=== PATIENT | male | born 1985 | race Caucasian/White ===

== ENCOUNTER 2016-05-20 11:56 | Outpatient (CLI) | payer BC, OTHER | END 2016-05-20 11:57 | disposition home or self-care (01) | DX: Z00.00 Encounter for general adult medical examination without abnormal findings (principal); R03.0 Elevated blood-pressure reading, without diagnosis of hypertension ==

== ENCOUNTER 2016-05-21 13:38 | Outpatient (CLI) | payer OTHER | END 2016-05-21 13:39 | disposition home or self-care (01) | DX: G47.30 Sleep apnea, unspecified (principal); G47.8 Other sleep disorders; G47.10 Hypersomnia, unspecified; R06.83 Snoring ==

== ENCOUNTER 2016-09-23 10:44 | Outpatient (CLI) | payer OTHER | END 2016-09-23 10:45 | disposition home or self-care (01) | DX: G47.33 Obstructive sleep apnea (adult) (pediatric) (principal) ==

== ENCOUNTER 2016-11-19 08:59 | Outpatient (CLI) | payer OTHER | END 2016-11-19 09:00 | disposition home or self-care (01) | LOC: SC 08:59 | PROVIDERS: ATTEND Specialist | DX: G47.33 Obstructive sleep apnea (adult) (pediatric) (principal) | CPT/HCPCS: 99212; 99213 ==

== ENCOUNTER 2017-08-29 15:51 | Outpatient (CLI) | payer OTHER ==
--- NOTE | 2017-08-30 20:24 | XRAY Report ---
EXAM: RIGHT SHOULDER RADIOGRAPHY EXAM DATE: 08/29/2017 04:05 PM. CLINICAL HISTORY: SHOULDER PAIN, RIGHT. COMPARISON: None. TECHNIQUE: 3 views. FINDINGS: Bones: Normal. No fracture or bone lesion. Joints: The glenohumeral and acromioclavicular joints are preserved. Soft tissues: The visualized hemithorax is unremarkable. No soft tissue swelling. IMPRESSION: Negative shoulder radiography. [facility] Referring Provider Line: [phone] SITE ID: [id number]
== END 2017-08-29 15:52 | disposition home or self-care (01) ==
LOC: DI 15:51
PROVIDERS: ATTEND Family Medicine
DX: M25.511 Pain in right shoulder (principal)

== ENCOUNTER 2019-05-26 10:33 | Emergency (ER) | payer OTHER, BC ==
[2019-05-26 10:55] VITALS: BP 202/98
--- NOTE | 2019-05-26 11:57 | XRAY Report ---
Reason: neck/shoulder pain Procedure Date: 05/26/2019 Accession Number: [id number] / [id number] Procedure: XR - Cervical Spine 2 View CPT Code: Final Report FULL RESULT: EXAM: CERVICAL SPINE RADIOGRAPHY EXAM DATE: 05/26/2019 11:42 AM. CLINICAL HISTORY: Neck/shoulder pain. COMPARISONS: None. TECHNIQUE: 3 views. FINDINGS: Alignment: Straightened cervical lordosis.. No spondylolisthesis or scoliosis. Bones: The cervical vertebral bodies and posterior elements are well visualized from the skull base through C7. The C7-T1 disk is not imaged. No fractures or bone lesions. Disks: Disk heights are maintained. Facets: No degenerative disease. Soft Tissues: No prevertebral soft tissue swelling. IMPRESSION: No significant findings 3 view cervical spine radiography through C7.. [facility]
--- NOTE | 2019-05-26 11:59 | XRAY Report ---
Reason: neck/shoulder pain Procedure Date: 05/26/2019 Accession Number: [id number] / [id number] Procedure: XR - Shoulder 3 View LT CPT Code: Final Report FULL RESULT: EXAM: LEFT SHOULDER RADIOGRAPHY EXAM DATE: 05/26/2019 11:42 AM. CLINICAL HISTORY: Neck/shoulder pain. COMPARISON: SHOULDER 3 VIEW RT 08/29/2017 3:55 PM. TECHNIQUE: 4 views. FINDINGS: Bones: Normal. No fracture or bone lesion. Joints: The glenohumeral and acromioclavicular joints are anatomically aligned. Soft tissues: The included hemithorax is unremarkable. No soft tissue calcification. IMPRESSION: Normal left shoulder radiography. [facility]
--- NOTE | 2019-05-26 12:03 | ED Physician Documentation ---
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 Now feeling better. No head inj. Ambulating ok.) Review of Systems Constitutional: denies: Fever, Chills Cardiac: denies: Chest pain / pressure, Palpitations Respiratory: denies: Dyspnea, Cough PD PAST MEDICAL HISTORY - Present Medications Home Medications: Ambulatory Orders Medication Instructions Recorded Confirmed Cyclobenzaprine [Flexeril] 10 mg PO TID PRN #14 tablet 05/26/19 PD ED PE NORMAL - Vitals Vital signs reviewed: Yes - General General: Alert and oriented X 3, No acute distress, Well developed/nourished - HEENT HEENT: Atraumatic, PERRL, EOMI - Neck Neck: Other (Cervical spine is nontender, he has mild pain with leftward rotation but not rightward with rotation.) - Extremities Extremities: Other (Left shoulder is nontender without deformity. He can abduct to about 120 degrees but then it starts to hurt. Negative supraspinatus testing, no pain with forced internal or external rotation.) - Neuro Neuro: Alert and oriented X 3, Normal speech Results - Vitals Vitals: Vital Signs - 24 hr 05/26/19 10:50 Temperature 36.4 C L Heart Rate 90 Respiratory 16 Rate Blood Pressure 202/98 H O2 Saturation 97 Oxygen O2 Source Room air - Rads (name of study) XR Cspine and L shoulder Radiology: EMP read contemporaneously (NAD) PD MEDICAL DECISION MAKING - ED course ED course: 33-year-old gentleman with a fall, injuring his left shoulder and neck. Examination and x-rays are without significant abnormality. He requested some muscle relaxers but also wanted to go back to work. Departure - Departure Disposition: Home, Self Care Clinical Impression: Left shoulder strain Qualifiers: Encounter type: initial encounter Qualified Code(s): S46.912A - Strain of unspecified muscle, fascia and tendon at shoulder and upper arm level, left arm, initial encounter Neck strain Qualifiers: Encounter type: initial encounter Qualified Code(s): S16.1XXA - Strain of muscle, fascia and tendon at neck level, initial encounter Condition: Good Record reviewed to determine appropriate education?: Yes Instructions: ED Sprain Strain Neck, ED Sprain Shoulder Prescriptions: Cyclobenzaprine [Flexeril] 10 mg PO TID PRN #14 tablet PRN Reason: Spasms Comments: Check with your doctor in a week if not better, return for new or worsening symptoms. Forms: Activity restrictions
== END 2019-05-26 12:08 | disposition home or self-care (01) ==
LOC: ED 10:33
DX: S46.912A Strain of unspecified muscle, fascia and tendon at shoulder and upper arm level, left arm, initial encounter (principal); S16.1XXA Strain of muscle, fascia and tendon at neck level, initial encounter; V86.11XA Passenger of ambulance or fire engine injured in traffic accident, initial encounter; Y99.0 Civilian activity done for income or pay
CPT/HCPCS: 1040M; 72040; 73030; 99283; 99284

== ENCOUNTER 2019-06-03 08:00 | Outpatient (CLI) | payer OTHER ==
[2019-06-03 18:37] LABS: HB2 TOTAL 13.8 g/dL; HEMOGLOBIN A1C 0.53 g/dL; HEMOGLOBIN A1C % 5.7 % (4.6-6.2)
[2019-06-03 18:49] LABS: BASOPHILS % (AUTO) 0.4 %; EOSINOPHILS # (AUTO) 0.1 10^3/uL (0.0-0.7); EOSINOPHILS % (AUTO) 1.4 %; HGB - HEMOGLOBIN 13.7 g/dL (14.0-18.0); LYMPHOCYTES # (AUTO) 1.8 10^3/uL (1.5-3.5); LYMPHOCYTES % (AUTO) 24.3 %; MEAN CORPUSCULAR HEMOGLOBIN 27.7 pg (27.0-31.0); MEAN CORPUSCULAR HGB CONC 31.1 g/dL (32.0-36.0); MEAN CORPUSCULAR VOLUME 89.3 fL (80.0-94.0); MEAN PLATELET VOLUME 11.3 fL (7.4-11.4); MONOCYTES # (AUTO) 0.4 10^3/uL (0.0-1.0); MONOCYTES % (AUTO) 5.7 %; NEUTROPHILS % (AUTO) 67.8 %; PLT - PLATELET COUNT 222 10^3/uL (130-450); RED BLOOD COUNT 4.94 10^6/uL (4.70-6.10); RED CELL DISTRIBUTION WIDTH 13.9 % (12.0-15.0); WHITE BLOOD COUNT 7.4 x10^3/uL (4.8-10.8)
[2019-06-03 18:50] LABS: ALBUMIN 3.8 g/dL (3.2-5.5); ALBUMIN/GLOBULIN RATIO 1.1 (1.0-2.2); ALKALINE PHOSPHATASE 96 IU/L (42-121); ALT ALANINE AMINOTRANSFERASE 60 IU/L (10-60); AST ASPARTATE AMINOTRANSFERASE 45 IU/L (10-42); BILIRUBIN,TOTAL 0.5 mg/dL (0.2-1.0); BUN - BLOOD UREA NITROGEN 19 mg/dL (6-20); CALCIUM 9.1 mg/dL (8.5-10.3); CARBON DIOXIDE - CO2 24 mmol/L (21-32); CHLORIDE 108 mmol/L (101-111); CHOL/HDL RATIO 3.8 (<5.0); CHOLESTEROL 140 mg/dL; CREATININE 0.7 mg/dL (0.6-1.2); GFR - MDRD 131 (>89); GLUCOSE 84 mg/dL (70-100); HDL CHOLESTEROL 37 mg/dL; LDL CHOLESTEROL,CALCULATED 78 mg/dL; LDL/HDL RATIO 2.1 (<3.6); SODIUM 141 mmol/L (135-145); TOTAL PROTEIN 7.3 g/dL (6.7-8.2); VLDL CHOLESTEROL 25 mg/dL
== END 2019-06-03 23:59 | disposition home or self-care (01) ==
LOC: LAB.WCP 08:00
PROVIDERS: ATTEND Family Medicine
DX: I10 Essential (primary) hypertension (principal); E66.01 Morbid (severe) obesity due to excess calories
CPT/HCPCS: 36415; 80053; 80061; 83036; 83721; 84443; 85025

== ENCOUNTER 2020-03-28 15:02 | Outpatient (CLI) | payer BC ==
--- NOTE | 2020-03-28 15:57 | SLEEP CARE CONSULTATION ---
Information from patient questionnaire entered by Chino Russell. I have reviewed and concur with the information entered by Chino Russell. This document represents the service I personally performed and the decisions made by me, Madhuri Queen ARNP. History of Present Illness Service Date and Time: 03/28/2020 1502 Reason for Visit: New patient, Re-establish care Chief Complaint: reports: Other (To transfer DME suppliers) Date of Onset: 4 years Usual bedtime: 11 PM Time it takes to fall asleep: Minutes Snores at night: Yes Observed to quit breathing while asleep: Yes Sleeps alone due to snoring: No Number of times waking at night: 3 Reasons for waking at night: denies: Choking, Snoring, Gasping for air Toss, Turn, or Twitch while sleeping: No Recalls having dreams: Yes Usually gets out of bed at: 10 AM Feels refreshed in the morning: Yes Morning headache: No Sleepy or fatigued during the day: Yes Ever fallen asleep while driving: No Takes day naps: Yes Dreams during day naps: No Prior sleep studies: Yes Year and Where: 2016 [facility] Additional HPI information: CHIVO SHAFER was diagnosed to have mild, AHI 5.2, obstructive sleep apnea- hypopnea syndrome and comes in today for CPAP therapy to reestablish care with clinic. - Parasomnia Symptoms Ever been unable to move upon waking from sleep: No Ever felt weak in the knees when startled or emotional: No Bothered by creepy, crawly, restless sensations in legs: No Problems with memory or concentration: No CPAP Compliance Data Compliance data discussion: [facility] was DME but they are no longer dealing in CPAP supplies. He needs to change to new DME for supplies. Full face mask, Resmed; he has been using same mask for years. He washes it once a week. He has a back up mask if needed. Subjective Missed days of use due to: reports: other (working, avg 12 days of month) Patient concerns: reports: mask leak noise (needs to change out headgear since it is worn out from use). denies: aerophagia, mask discomfort, air blowing in eyes, condensation in mask/hose, nasal congestion, dry mouth, nose, throat, epistaxis, other Observed to snore while using device: Yes (occasionally, not for long) Current pressure setting perceived as: comfortable On therapy, patient: reports: sleeping better, awakening more refreshed, being more awake and alert during the day, more rested overall. denies: drowsiness while driving Initial [place] Sleepiness Scale score: 7 (in 2017) Current [place] Sleepiness Scale score: 9 Past Medical History Past Medical History: reports: Hypertension, GERD. 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 Patient is Single and lives in [place]. Have you smoked in the past 12 months: No Cigarettes per day (20/pack): 10 Years of smokin Quit date: 4 years Smoking Pack Years: 2.0 Alcohol use: Yes Alcohol amount and frequency: 3 beers once a week Caffeine use: Yes Caffeine amount and frequency: lots; 2 liters diet pepsi daily Family History Family history of sleep disordered breathing: Yes (mom and dad) Family Hx Sleep Apnea: Mother: Snoring, Father: Snoring Allergies and Home Medications Drug allergies reviewed: Yes (erythromycin, mycins) Home medication list reviewed: Yes Allergy and home medication list: Lisinopril 20 mg daily Review of Systems Weight gain over past 5 years: yes Cardiovascular: reports: high blood pressure. denies: palpitations, chest pain, irregular heart rate or pulse Respiratory: reports: chronic cough. denies: shortness of breath Gastrointestinal: reports: heartburn. denies: difficulty swallowing Neurological: denies: headaches, seizure, head trauma, speech dysfunction, gait or balance problems Psychiatric: denies: Attention Deficit Hyperactivity, anxiety, depression, mood disorder, claustrophobia Ear/Nose/Throat: denies: nasal congestion, sinus problems, nose bleeds, dry mouth/throat, injury to nose, tonsillectomy, wisdom teeth removed Endocrine: denies: thyroid disease Musculoskeletal: denies: joint pain, muscle pain or cramping Immunologic: denies: allergies to food or environment Physical Exam Blood Pressure: 146/77 Cuff size: wrist Heart Rate: 83 O2 Saturation: 98 Height: 6 ft 1 in Weight: 450 lb Body Mass Index: 59.3 BMI Classification: Morbidly Obese Neck circumference: 20 (inches) Nostrils: patent to airflow Turbinates: normal Septum: midline Mouth and throat: narrow oropharynx Uvula visualization: 50% Mallampati Class II Tongue: enlarged in size with teeth cabrera on lateral edges Tonsils: 1+ Chin and jaw: normal size and position Neck: normal w/o lymphadenopathy or thyromegaly Heart: regular rate and rhythm Lungs: clear bilaterally Impression and Plan 1. Obstructive Sleep Apnea-Hypopnea Syndrome, mild, with unknown treatment compliance and unknown apnea control. On CPAP therapy, the patient has better sleep quality and is more rested overall. He needs a new DME since his last one no longer is dispensing supplies. Patient was informed that another DME can be used. I will have my humanities coordinator inform of DME options. A DWO prescrip tion will then be made but will not be faxed until his compliance information has been returned to office and he is found to be compliant. Patient advised to contact this office if further supply problems. 2. Morbid obesity, unspecified. Currently patients BMI is 59.3. Obesity increases the risk of apnea, CPAP pressure requirements and overall health risks especially cardiovascular and diabetes. Thus patient is advised to lose weight. Weight loss can be done with reducing portion size, reducing refined foods and balancing content with vegetables, fruit and whole grain foods. Patient's apnea severity and rationale for treatment to reduce apnea, improve sleep quality and reduce cardiovascular and cerebrovascular events was reviewed. I also reviewed the benefit of consistent device use of CPAP for hypertension. * Patient to bring in compliant information on his memory chip * Transfer of DME once compliance information is determined * Notify me if snoring with mask or feeling that the pressure is too much or too little * Attempt to lose weight * Call this office if any problems using CPAP * Return for follow up in annual (unless he is not compliant), or sooner if concerns arise Counseling Topics: Spare mask, Weight loss health impact Visit Type: In Office Time Spent with Patient (minutes): 39 Provider Statement: I spent 100% of the Face to Face Visit with the patient with greater than 50% spent counseling the patient and coordination of care.
[2020-03-28 16:00] VITALS: BP 146/77
== END 2020-03-28 15:03 | disposition home or self-care (01) ==
LOC: SC 15:02
PROVIDERS: ATTEND Nurse Practitioner Family
DX: G47.33 Obstructive sleep apnea (adult) (pediatric) (principal); E66.01 Morbid (severe) obesity due to excess calories; Z68.43 Body mass index [BMI] 50.0-59.9, adult
CPT/HCPCS: 99203; 99212

== ENCOUNTER 2020-10-28 11:00 | Outpatient (CLI) | payer BC ==
--- NOTE | 2020-10-28 12:32 | XRAY Report ---
PROCEDURE: Foot 2 View LT INDICATIONS: PAIN IN LEFT FOOT TECHNIQUE: 2 views of the foot were acquired. COMPARISON: None FINDINGS: Bones: No fractures or dislocations. No suspicious bony lesions. Soft tissues: No tibiotalar joint effusion. Achilles tendon appears normal. IMPRESSION: No evidence acute bony abnormality of the left foot. Reviewed by: Tyson Bradford MD on 10/28/2020 11:30 AM [facility] Approved by: Tyson Bradford MD on 10/28/2020 11:30 AM [facility] Station ID: [id number]
== END 2020-10-28 11:01 | disposition home or self-care (01) ==
LOC: DI.N 11:00
PROVIDERS: ATTEND Nurse Practitioner
DX: M79.672 Pain in left foot (principal)

== ENCOUNTER 2021-04-14 21:53 | Emergency (ER) | payer BC ==
--- NOTE | 2021-04-14 22:09 | ED Physician Documentation ---
History of Present Illness - Stated complaint Stated Complaint: DIZZY - History obtained from History obtained from: Patient - Additonal information Additional information: 35-year-old man with recent medical history of 175 pound weight loss status post gastric sleeve surgery presents with multiple episodes of lightheadedness today. Patient states that he urinated this morning but has not urinated since and has had only 1 cup of coffee, one mocha, and one iced tea today otherwise has not had any water. Patient worked hard outside today and became lightheaded and had a hot flash requiring him to take a break. He had a recurrent episode in the evening and so went to the [facility] to get checked out. He had a normal blood pressure but then still felt ill and so was brought to the emergency department. Denies fevers chills nausea diaphoresis chest pain shortness of breath or other symptoms. Patient felt normal yesterday. No sick contacts. Review of Systems Ten Systems: 10 systems reviewed and negative Constitutional: denies: Fever, Chills Cardiac: denies: Chest pain / pressure Respiratory: denies: Dyspnea, Cough GI: denies: Abdominal Pain, Nausea, Vomiting, Diarrhea : denies: Dysuria Neurologic: reports: Generalized weakness, Other (lightheadedness). denies: Focal weakness, Numbness PD PAST MEDICAL HISTORY - Present Medications Home Medications: Ambulatory Orders Medication Instructions Recorded Confirmed Cyclobenzaprine [Flexeril] 10 mg PO TID PRN #14 tablet 05/26/19 - Allergies Allergies/Adverse Reactions: Allergies Allergy/AdvReac Type Severity Reaction Status Date / Time erythromycin base Allergy Unknown Verified 04/14/21 22:05 [From Erythrocin] - Social History Does the pt smoke?: No Smoking Status: Never smoker - POLST Patient has POLST: No PD ED PE NORMAL - Vitals Vital signs reviewed: Yes - General General: Alert and oriented X 3, No acute distress, Well developed/nourished - HEENT HEENT: Atraumatic, PERRL, EOMI - Neck Neck: Supple, no meningeal sign - Cardiac Cardiac: RRR, No murmur, No gallop, No rub, Strong equal pulses - Respiratory Respiratory: No respiratory distress, Clear bilaterally - Abdomen Abdomen: Non tender, Non distended - Derm Derm: Normal color, Warm and dry - Extremities Extremities: No deformity - Neuro Neuro: Alert and oriented X 3 - Psych Psych: Normal mood, Normal affect Results - Vitals Vitals: Vital Signs - 24 hr 04/14/21 04/14/21 04/14/21 22:05 22:06 22:09 Temperature 36.5 C 36.8 C Heart Rate 60 60 Heart Rate [ 52 L Sitting] Heart Rate [ 56 L Standing] Heart Rate [ 55 L Supine] Respiratory 18 18 Rate Blood Pressure 157/75 H 157/75 H Blood Pressure 171/93 H [Sitting] Blood Pressure 177/109 H [Standing] Blood Pressure 164/89 H [Supine] O2 Saturation 100 100 Oxygen O2 Source Room air - EKG (time done) 2159 Rate: Rate (enter#) (54) Rhythm: NSR [place]: Normal Intervals: Normal [place] QRS: Normal Ischemia: ST elevation c/w repol - Labs Labs: Laboratory Tests 04/14/21 04/14/21 04/14/21 22:08 22:51 22:51 WBC 8.5 RBC 4.60 L Hgb 13.7 L Hct 40.8 L MCV 88.7 MCH 29.8 MCHC 33.6 RDW 13.6 Plt Count 181 MPV 12.0 H Neut # (Auto) 6.0 Lymph # (Auto) 1.9 Stevens # (Auto) 0.4 Eos # (Auto) 0.2 Baso # (Auto) 0.0 Absolute Nucleated RBC 0.00 Nucleated RBC % 0.0 Sodium 137 Potassium 3.9 Chloride 100 L Carbon Dioxide 26 Anion Gap 11.0 BUN 17 Creatinine 0.7 Estimated GFR (MDRD) 129 Glucose 110 H POC Whole Bld Glucose 93 Calcium 9.1 Total Bilirubin 0.7 AST 37 ALT 27 Alkaline Phosphatase 106 Total Protein 7.2 Albumin 4.0 Globulin 3.2 Albumin/Globulin Ratio 1.3 Lipase 24 PD MEDICAL DECISION MAKING - ED course ED course: 35yM with psh gastric sleeve p/w lightheadedness today, improving with ivf in ED. Cardiac monitoring uncovered no arrhythmias. patient HR did did down into 50s and high 40s briefly during his stay with NSR on the monitor. patient asymptomatic. advised oral hydration 8 glasses of water daily. Strict return precautions given. plan to f/u with pmd. Departure - Departure Disposition: 01 Home, Self Care Clinical Impression: Lightheadedness, Weakness Condition: Stable Instructions: ED Dizziness UKO Comments: You were seen in the emergency department for dizziness and weakness. Your ekg and labwork did not show any emergent findings. You can view your labwork on the [facility] website through your patient health portal. It is likely that you became overexerted today. You should make sure that you drink lots of water tomorrow and get some rest. Return to the emergency department if you have any new or worsening symptoms or other concerns.
[2021-04-14] MEDS ORDERED: SODIUM CHLORIDE 0.9% 1,000 ML IV STA (22:23)
[2021-04-14 23:00] LABS: BASOPHILS % (AUTO) 0.4 %; EOSINOPHILS # (AUTO) 0.2 10^3/uL (0.0-0.7); HCT - HEMATOCRIT 40.8 % (42.0-52.0); HGB - HEMOGLOBIN 13.7 g/dL (14.0-18.0); LYMPHOCYTES # (AUTO) 1.9 10^3/uL (1.5-3.5); LYMPHOCYTES % (AUTO) 21.9 %; MEAN CORPUSCULAR HEMOGLOBIN 29.8 pg (27.0-31.0); MEAN CORPUSCULAR HGB CONC 33.6 g/dL (32.0-36.0); MEAN CORPUSCULAR VOLUME 88.7 fL (80.0-94.0); MONOCYTES # (AUTO) 0.4 10^3/uL (0.0-1.0); MONOCYTES % (AUTO) 4.9 %; NEUTROPHILS % (AUTO) 70.4 %; PLT - PLATELET COUNT 181 10^3/uL (130-450); RED CELL DISTRIBUTION WIDTH 13.6 % (12.0-15.0); WHITE BLOOD COUNT 8.5 x10^3/uL (4.8-10.8)
[2021-04-14 23:11] LABS: ALBUMIN/GLOBULIN RATIO 1.3 (1.0-2.2); BILIRUBIN,TOTAL 0.7 mg/dL (0.2-1.0); CALCIUM 9.1 mg/dL (8.5-10.3); CREATININE 0.7 mg/dL (0.6-1.2); POTASSIUM 3.9 mmol/L (3.5-5.0); TOTAL PROTEIN 7.2 g/dL (6.7-8.2)
[2021-04-15 00:14] VITALS: BP 134/76
== END 2021-04-15 00:15 | disposition home or self-care (01) ==
LOC: ED 21:53
DX: R42 Dizziness and giddiness (principal); R53.1 Weakness; Z98.84 Bariatric surgery status
CPT/HCPCS: 36415; 80053; 83690; 85025; 93005; 99282; 99283

== ENCOUNTER 2021-11-10 13:44 | Outpatient (CLI) | payer BC | END 2021-11-10 13:45 | disposition critical access hospital (66) | LOC: EMS 13:44 | DX: R42 Dizziness and giddiness (principal); R11.2 Nausea with vomiting, unspecified; R19.7 Diarrhea, unspecified | CPT/HCPCS: A0425; A0427 ==

== ENCOUNTER 2021-11-10 14:14 | Emergency (ER) | payer BC ==
[2021-11-10] MEDS ORDERED: MECLIZINE 12.5 MG TABLET PO STA (14:20)
[2021-11-10] MEDS ORDERED: SODIUM CHLORIDE 0.9% 1,000 ML IV STA (14:20)
[2021-11-10] MEDS ORDERED: PROMETHAZINE INJ 25 MG in SODIUM CHLORIDE 0.9% 50 ML IV STA (14:20)
--- NOTE | 2021-11-10 14:23 | ED Physician Documentation ---
History of Present Illness - Stated complaint Stated Complaint: VERTIGO - History obtained from History obtained from: Patient, EMS - History of Present Illness Timing: Today Pain level max: 0 Pain level now: 0 - Additonal information Additional information: Patient is a 36-year-old male who presents to the emergency department with nausea, vomiting and diarrhea today. Also sudden onset of vertigo. Feels like the room is spinning. He is being worked up currently for a possible acoustic neuroma. Had a recent MRI at [facility] in [place].Has had a 75% hearing loss in the left ear. Patient states that he has had vertigo in the past. This feels similar. No trauma. He states he does have relative bradycardia as well. He states that his heart rate will drop to the 30s when he is sleeping. 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 Review of Systems Ten Systems: 10 systems reviewed and negative Constitutional: denies: Fever, Chills Ears: denies: Ear pain Nose: denies: Rhinorrhea / runny nose, Congestion Respiratory: denies: Cough GI: reports: Nausea, Vomiting, Diarrhea. denies: Abdominal Pain, Hematemesis, Bloody / black stool : denies: Dysuria Skin: denies: Rash Musculoskeletal: denies: Neck pain, Back pain Neurologic: denies: Headache PD PAST MEDICAL HISTORY - Present Medications Home Medications: Ambulatory Orders Medication Instructions Recorded Confirmed Cyclobenzaprine [Flexeril] 10 mg PO TID PRN #14 tablet 05/26/19 Meclizine HCl [Motion Sickness] 25 mg PO Q6H PRN #30 tablet 11/10/21 Ondansetron Odt [Zofran] 4 mg TL Q6H PRN #10 tablet 11/10/21 Promethazine [Phenergan] 25 mg PO Q6H PRN #10 tab 11/10/21 - Allergies Allergies/Adverse Reactions: Allergies Allergy/AdvReac Type Severity Reaction Status Date / Time erythromycin base Allergy Unknown Verified 11/10/21 14:25 [From Erythrocin] - Social History Does the pt smoke?: No Smoking Status: Never smoker - POLST Patient has POLST: No PD ED PE NORMAL - Vitals Vital signs reviewed: Yes - General General: Alert and oriented X 3, No acute distress - HEENT HEENT: PERRL, Ears normal, Moist mucous membranes, Pharynx benign, Other (Horizontal nystagmus to the left) - Neck Neck: Supple, no meningeal sign - Cardiac Cardiac: RRR, Strong equal pulses - Respiratory Respiratory: No respiratory distress, Clear bilaterally - Abdomen Abdomen: Soft, Non tender, Non distended - Derm Derm: Warm and dry, No rash - Extremities Extremities: No edema - Neuro Neuro: Alert and oriented X 3, research project coordinator 2-12 intact, No motor deficit, No sensory deficit, Normal speech Eye Opening: Spontaneous Motor: Obeys Commands Verbal: Oriented GCS Score: 15 - Psych Psych: Normal mood, Normal affect Results - Vitals Vitals: Vital Signs - 24 hr 11/10/21 11/10/21 11/10/21 14:21 15:02 18:06 Temperature 36.6 C Heart Rate 53 L 41 L 49 L Respiratory 20 17 16 Rate Blood Pressure 203/117 H 167/108 H 132/79 H O2 Saturation 100 100 100 Oxygen O2 Source Room air - EKG (time done) 1431 Rate: Rate (enter#) (47) Rhythm: Sinus bradycardia Elizabeth: Normal Intervals: Normal [place] QRS: Normal Ischemia: ST elevation c/w repol - Labs Labs: Laboratory Tests 11/10/21 11/10/21 14:29 14:29 WBC 5.1 RBC 4.82 Hgb 14.2 Hct 42.3 MCV 87.8 MCH 29.5 MCHC 33.6 RDW 12.9 Plt Count 167 MPV 10.8 Neut # (Auto) 3.0 Lymph # (Auto) 1.7 Jones # (Auto) 0.3 Eos # (Auto) 0.1 Baso # (Auto) 0.0 Absolute Nucleated RBC 0.00 Nucleated RBC % 0.0 Sodium 138 Potassium 3.7 Chloride 101 Carbon Dioxide 27 Anion Gap 10.0 BUN 18 Creatinine 0.6 Estimated GFR (MDRD) 153 Glucose 98 Calcium 9.2 Total Bilirubin 0.5 AST 19 ALT 22 Alkaline Phosphatase 105 Total Protein 6.8 Albumin 4.1 Globulin 2.7 Albumin/Globulin Ratio 1.5 Lipase 25 PD MEDICAL DECISION MAKING - ED course Complexity details: reviewed results, re-evaluated patient, considered differential, d/w patient ED course: Patient with what appears to be BPPV, though is being worked up for a possible acoustic neuroma. His symptoms resolved with IV fluids, meclizine and Phenergan. Ambulating without difficulty. No further vertigo. He had an MRI last week and will follow up with his doctor this week for results. Patient also has asymptomatic bradycardia. Unclear etiology. He will follow-up with his doctor for this as well. Patient counseled regarding signs and symptoms for which I believe and urgent re-evaluation would be necessary. Patient with good understanding of and agreement to plan and is comfortable going home at this time This document was made in part using voice recognition software. While efforts are made to proofread this document, sound alike and grammatical errors may occur. Departure - Departure Disposition: Home, Self Care Clinical Impression: Vertigo, Sinus bradycardia Vomiting Qualifiers: Vomiting type: unspecified Nausea presence: with nausea Qualified Code(s): R11.2 - Nausea with vomiting, unspecified Condition: Good Instructions: ED BPV Vertigo, ED Nausea Vomiting Follow-Up: Lynda Lan DO [Primary Care Provider] - Within 1 week Prescriptions: Meclizine HCl [Motion Sickness] 25 mg PO Q6H PRN #30 tablet PRN Reason: Dizziness Promethazine [Phenergan] 25 mg PO Q6H PRN #10 tab PRN Reason: Nausea / Vomiting Ondansetron Odt [Zofran] 4 mg TL Q6H PRN #10 tablet PRN Reason: Nausea / Vomiting Comments: Please make sure to follow-up with your doctor this week for the results of your MRI from [facility]. Please return if you worsen. Your prescriptions were sent to [facility] in [place]. Drink plenty of fluids and rest today. You should also follow-up with your doctor for your bradycardia. Discharge Date/Time: 11/10/21 18:49
--- OUTSIDE RECORDS SUMMARY | 2021-11-10 14:30 | EXTERNAL MEDICAL SUMMARY RPT | Continuity of Care Document ---
:1985 Author Organization [facility] Address [address] [place] [address] Phone Allergies No information. Encounters No information. Functional Status No information. Immunizations No information. Medications No information. Problems No information. Procedures No information. Results/Labs test date author facility value unit interpret ation Result panel 1 (unknown) (no (unknown) (unknown) (no value) (units (unk nown) date) unknown) (unknown) (no (unknown) (unknown) [address] [place] [address] (units (unknown) date) unknown) (unknown) (no (unknown) (unknown) [place], [place] (units ( unknown) date) [id number] unknown) (unknown) (no (unknown) (unknown) [facility] (units (unknown) date) unknown) (unknown) (no (unknown) (unknown) Magnetic Resonance (units (unknown) date) Report unknown) (unknown) (no (unknown) (unknown) Signed (units (unkno wn) date) unknown) (unknown) (no (unknown) (unknown) (no value) (units (unk nown) date) unknown) (unknown) (no (unknown) (unknown) 10/25/21 (units (unkno wn) date) unknown) (unknown) (no (unknown) (unknown) ADC through the (units (unknown) date) brain. Axial unknown) thin-slice 3D CISS, coronal TruFISP, axial T1 (unknown) (no (unknown) (unknown) Approved by: Jackson (units (unknown) date) Allan Knapp on unknown) 10/26/2021 at 4:27 (unknown) (no (unknown) (unknown) Basal cisterns are (units (unknown) date) patent. unknown) (unknown) (no (unknown) (unknown) Brain: No (units (unk nown) date) intracranial bleeds unknown) or mass effects. [place]-white matter interface is (unknown) (no (unknown) (unknown) COMPARISON: None. (units (unknown) date) unknown) (unknown) (no (unknown) (unknown) CSF spaces: (units (un known) date) Ventricles are unknown) normal in size and shape. No extra-axial fluid (unknown) (no (unknown) (unknown) Cerebellopontine (units (unknown) date) angles: No unknown) cerebellopontine angle masses. Inner ear (unknown) (no (unknown) (unknown) Dictated by: Jackson (units (unknown) date) Allan Knapp on unknown) 10/26/2021 at 4:25 (unknown) (no (unknown) (unknown) FINDINGS: (units (unkn own) date) unknown) (unknown) (no (unknown) (unknown) IMPRESSION: No (units (unknown) date) finding to explain unknown) loss. Specifically, no mass or signal (unknown) (no (unknown) (unknown) INDICATIONS: (units (u nknown) date) Other specified unknown) hearing loss, unspecified ear (unknown) (no (unknown) (unknown) Image quality: (units (unknown) date) Excellent. unknown) (unknown) (no (unknown) (unknown) No abnormal (units (un known) date) intracranial unknown) enhancement. Diffusion weighted images demonstrate no (unknown) (no (unknown) (unknown) Noncontrast (units (un known) date) sagittal T1 spin unknown) echo, axial FLAIR, axial gradient echo, axial (unknown) (no (unknown) (unknown) Sinuses: Sinuses (units (unknown) date) and mastoids are unknown) clear. (unknown) (no (unknown) (unknown) Skull and face: (units (unknown) date) Calvarial marrow unknown) signal is normal. Orbits appear normal. (unknown) (no (unknown) (unknown) TECHNIQUE: (units (unk nown) date) unknown) (unknown) (no (unknown) (unknown) along the course (units (unknown) date) of the 7th/8th unknown) cranial nerves. (unknown) (no (unknown) (unknown) contrast, thin (units (unknown) date) slice axial and unknown) coronal T1 spin echo with fat saturation through (unknown) (no (unknown) (unknown) course of the 7th (units (unknown) date) cranial nerve. unknown) (unknown) (no (unknown) (unknown) internal auditory (units (unknown) date) canals, and axial unknown) T1 spin echo with fat saturation through (unknown) (no (unknown) (unknown) ischemic insults. (units (unknown) date) Brainstem appears unknown) normal. Normal intravascular flow voids (unknown) (no (unknown) (unknown) normally formed. (units (unknown) date) No suspicious unknown) enhancement in the internal auditory canal or (unknown) (no (unknown) (unknown) present. (units (unkno wn) date) unknown) (unknown) (no (unknown) (unknown) with fat (units (unkno wn) date) saturation through unknown) the internal auditory canals. After the (unknown) (no (unknown) (unknown) [id number] (units (unkno wn) date) unknown) (unknown) (no (unknown) (unknown) Accession Number: (units (unknown) date) [id number] unknown) (unknown) (no (unknown) (unknown) Age/Sex: 36 / M (units (unknown) date) Date of Service: unknown) (unknown) (no (unknown) (unknown) : 1985 (units (unknown) date) Acct:[id number] unknown) (unknown) (no (unknown) (unknown) Loc: MRI (units (unkno wn) date) unknown) (unknown) (no (unknown) (unknown) Ordering Provider: (units (unknown) date) Satish Washburn unknown) (unknown) (no (unknown) (unknown) PROCEDURE: MR (units (unknown) date) BRAIN (IAC) WWO CON unknown) (unknown) (no (unknown) (unknown) Patient: (units (unkno wn) date) Federico Rodriguez unknown) MR#: [id number] (unknown) (no (unknown) (unknown) Procedure: MR IAC (units (unknown) date) (brain) wwo con unknown) (unknown) (no (unknown) (unknown) abnormality (units (un known) date) unknown) (unknown) (no (unknown) (unknown) acute (units (unkno wn) date) unknown) (unknown) (no (unknown) (unknown) administration of (units (unknown) date) unknown) (unknown) (no (unknown) (unknown) along the (units (unkn own) date) unknown) (unknown) (no (unknown) (unknown) are (units (unkno wn) date) unknown) (unknown) (no (unknown) (unknown) collections. (units (u nknown) date) unknown) (unknown) (no (unknown) (unknown) diffusion and (units ( unknown) date) unknown) (unknown) (no (unknown) (unknown) intact. (units (unkno wn) date) unknown) (unknown) (no (unknown) (unknown) spin echo (units (unkn own) date) unknown) (unknown) (no (unknown) (unknown) structures appear (units (unknown) date) unknown) (unknown) (no (unknown) (unknown) the (units (unkno wn) date) unknown) (unknown) (no (unknown) (unknown) the brain. (units (unk nown) date) unknown) Social History No information. Vital Signs No information.
[2021-11-10 14:40] LABS: BASOPHILS % (AUTO) 0.4 %; EOSINOPHILS # (AUTO) 0.1 10^3/uL (0.0-0.7); EOSINOPHILS % (AUTO) 1.4 %; HCT - HEMATOCRIT 42.3 % (42.0-52.0); HGB - HEMOGLOBIN 14.2 g/dL (14.0-18.0); LYMPHOCYTES # (AUTO) 1.7 10^3/uL (1.5-3.5); LYMPHOCYTES % (AUTO) 32.3 %; MEAN CORPUSCULAR HEMOGLOBIN 29.5 pg (27.0-31.0); MEAN CORPUSCULAR HGB CONC 33.6 g/dL (32.0-36.0); MEAN CORPUSCULAR VOLUME 87.8 fL (80.0-94.0); MEAN PLATELET VOLUME 10.8 fL (7.4-11.4); MONOCYTES # (AUTO) 0.3 10^3/uL (0.0-1.0); MONOCYTES % (AUTO) 6.7 %; PLT - PLATELET COUNT 167 10^3/uL (130-450); RED BLOOD COUNT 4.82 10^6/uL (4.70-6.10); RED CELL DISTRIBUTION WIDTH 12.9 % (12.0-15.0); WHITE BLOOD COUNT 5.1 x10^3/uL (4.8-10.8)
[2021-11-10 14:50] LABS: ALBUMIN 4.1 g/dL (3.2-5.5); ALBUMIN/GLOBULIN RATIO 1.5 (1.0-2.2); BILIRUBIN,TOTAL 0.5 mg/dL (0.2-1.0); CALCIUM 9.2 mg/dL (8.5-10.3); CREATININE 0.6 mg/dL (0.6-1.2); POTASSIUM 3.7 mmol/L (3.5-5.0); TOTAL PROTEIN 6.8 g/dL (6.7-8.2)
[2021-11-10 18:07] VITALS: BP 132/79
== END 2021-11-10 18:49 | disposition home or self-care (01) ==
LOC: EDUNIT# → ED 14:14
DX: R42 Dizziness and giddiness (principal); R11.2 Nausea with vomiting, unspecified; R00.1 Bradycardia, unspecified
CPT/HCPCS: 36415; 80053; 83690; 85025; 93005; 96365; 99284; A9270; J7040

== ENCOUNTER 2021-12-06 08:00 | Outpatient (CLI) | payer BC ==
[2021-12-06 14:17] LABS: THYROID STIMULATING HORMONE 1.89 uIU/mL (0.34-5.60)
[2021-12-06 14:19] LABS: FREE T4 (FREE THYROXINE) 0.81 ng/dL (0.58-1.64)
== END 2021-12-06 23:59 | disposition home or self-care (01) ==
LOC: LAB.R 08:00
PROVIDERS: ATTEND Physician Assistant
DX: R00.1 Bradycardia, unspecified (principal)
CPT/HCPCS: 84439; 84443

== ENCOUNTER 2022-03-02 16:24 | Outpatient (CLI) | payer BC | END 2022-03-02 16:25 | disposition left against medical advice (07) | LOC: EMS 16:24 | DX: S01.412A Laceration without foreign body of left cheek and temporomandibular area, initial encounter (principal); V53.5XXA Driver of pick-up truck or van injured in collision with car, pick-up truck or van in traffic accident, initial encounter; Y92.413 State road as the place of occurrence of the external cause ==

== ENCOUNTER 2023-12-30 08:00 | Outpatient (CLI) | payer BC, OTHER ==
[2023-12-30 17:58] LABS: BILIRUBIN,URINE NEGATIVE (NEGATIVE); GLUCOSE, URINE (UA) NEGATIVE (NEGATIVE); KETONES,URINE (UA) NEGATIVE (NEGATIVE); LEUKOCYTE ESTERASE, URINE NEGATIVE (NEGATIVE); NITRITE,URINE NEGATIVE (NEGATIVE); OCCULT BLOOD,URINE NEGATIVE (NEGATIVE); PH,URINE 5.5 PH (5.0-7.5); PROTEIN,URINE NEGATIVE (NEGATIVE); UROBILINOGEN,URINE 0.2 (NORMAL) E.U./dL (NORMAL)
[2023-12-30 18:07] LABS: CLARITY,URINE CLOUDY (CLEAR)
[2023-12-30 18:45] LABS: AMORPHOUS SEDIMENT,UR Marked /LPF; BACTERIA,URINE None Seen /HPF (None Seen); RBC,URINE None Seen /HPF (0-5); SQUAMOUS EPITHELIAL CELL,UR NONE SEEN (<= Few); WBC,URINE 0-3 /HPF (0-3)
== END 2023-12-30 23:59 | disposition home or self-care (01) ==
LOC: LAB.N 08:00
PROVIDERS: ATTEND Physician Assistant
DX: R80.9 Proteinuria, unspecified (principal)
CPT/HCPCS: 81001; 87086